=== PATIENT | male | born 1960 | race Caucasian/White ===

== ENCOUNTER 2016-12-19 08:03 | Emergency (ER) | payer OTHER ==
[2016-12-19] MEDS ORDERED: HYDROmorphone 2 MG/ML SDV IM ONE (08:27)
[2016-12-19] MEDS ORDERED: Ondansetron 4 MG Tab.DIS PO SCH (08:30)
[2016-12-19 11:21] VITALS: BP 140/88
--- NOTE | 2016-12-20 11:17 | US ---
INDICATION: Post-op third day swelling, pain. Question DVT. DUPLEX ULTRASOUND, LEFT LOWER EXTREMITY VEINS: Utilizing 2-D real time, duplex Doppler spectral analysis, and color flow imaging, examination of the left lower extremity veins was obtained and revealed the venous structures to be compressible. Valvular competence was not evaluated. At the level of the popliteal fossa, there was a 6 x 4-cm hypoechoic heterogeneous area with a similar finding extending around the patella with no interior blood flow seen. This appearance may be due to hematoma formation. This should be correlated clinically. No other abnormalities were identified. IMPRESSION: 1. No evidence of deep venous thrombosis. 2. Valves were not evaluated. 3. Hematoma suggested popliteal fossa and at the patella. MTDD
--- NOTE | 2016-12-20 15:53 | ER ---
DATE SEEN: 12/19/2016 TIME SEEN: The patient was seen at 0808 hours this morning. HISTORY OF PRESENT ILLNESS: The patient had surgery on 12/16/2016, left meniscectomy, he thinks is medial. Since the incision is midline infrapatellar, so it is possible both menisci were operated on. The patient weighs 215 pounds. He is prediabetic. He has had previous aortic valve replacement on 09/28/2010 and he is on Coumadin, he had stopped on 12/10/2016 and this was replaced by enoxaparin shots and these shots were started preoperatively on 12/13/2016. ALLERGIES: Codeine, latex natural rubber, and penicillin. MEDICATIONS: 1. Atorvastatin 80 mg at bedtime. 2. Zolpidem/Ambien 5 mg at bedtime. 3. Warfarin 5 mg daily restarted on 12/15/2016. He stopped it three days before surgery. 4. We started his enoxaparin 12/13/2016, b.i.d. until the day before surgery which he had one shot. The patient had marked pain and difficulty sleeping last night because of the pain in the lower extremity and moderate swelling. He is concerned about potential DVT. No history of previous DVT because his aortic valve surgery that was replaced, slight bleeding within the joint. PHYSICAL EXAMINATION: VITAL SIGNS: See vital signs. HEENT: Negative. CARDIORESPIRATORY: Negative. Aortic valve click heard. ABDOMEN: Negative. Nontender to palpation. EXTREMITIES: Left lower extremity, no evidence for erythema. Midline incision infrapatellar noted. Mild swelling. Mild tenderness, popliteal surface. Moderate lower extremity gastroc discomfort. Dorsalis pedis pulse, posterior tibialis pulse intact. No acrocyanosis and no compromised circulation or capillary refill of the toes. DIAGNOSTIC DATA: Ultrasound of the left lower extremity did not demonstrate a DVT. He has a fairly large hematoma in his operative site. ASSESSMENT: 1. Popliteal hematoma probably compressing vessels causing diminished return venous flow from his lower leg resulting in increased swelling and popliteal fossa pain. 2. Postoperative swelling. 3. No sign of infection. 4. No evidence for DVT or PE. 5. Mildly overweight. 6. Treated for aortic valve replacement therapy. Anticoagulation with Coumadin stopped on 12/13/2016 and started on the enoxaparin, three days before surgery. 7. Warfarin restarted on his first postop day. PLAN: The patient will elevate his leg. He has not been totally compliant since his surgery. He needs to elevate his leg above his heart. Cold packs as needed to diminished pain discomfort. He has a prescription for hydromorphone, Dilaudid 2 mg 1 to 2 tablets every 4 to 6 hours p.r.n. pain was given to the patient. Follow up his doctor in next 3 to 5 days earlier if worse, otherwise in a week. Elevate his leg to diminish the swelling. At present, I do not feel he needs to have arthrocentesis to remove any hematomas that occurred with the knee surgery. If he needs arthrocentesis, his orthopedist or interventional radiology would need to perform. /[id number] MART/JASON QUESADA
--- NOTE | 2017-01-20 05:25 | ER ---
DATE SEEN: 12/19/2016 ADDENDUM: CHIEF COMPLAINT: When he was seen on the morning of 12/19/2016, left leg pain, increasing left leg discomfort, status postop 12/16/2016 (second postop day). /[id number] MART/JASON
== END 2016-12-19 09:40 | disposition home or self-care (01) ==
LOC: FB.ED 08:03
DX: M96.840 Postprocedural hematoma of a musculoskeletal structure following a musculoskeletal system procedure (principal); E66.3 Overweight; Z79.01 Long term (current) use of anticoagulants; Z88.5 Allergy status to narcotic agent; Z91.040 Latex allergy status; Z88.0 Allergy status to penicillin; M25.462 Effusion, left knee
CPT/HCPCS: 93971; 96372; 99283; A9270; J1170

== ENCOUNTER 2016-12-23 12:09 | Observation (INO) | payer OTHER ==
[2016-12-23] MEDS ORDERED: Morphine 2 MG/ML Syringe IM STA (12:42)
--- NOTE | 2016-12-23 12:52 | EDM.PDOC ---
ED HPI Trauma - General Chief Complaint: Lower Extremity Injury/Pain Stated Complaint: F/U KNEE PAIN Time Seen by Provider: 12/23/16 12:10 Source: Reports: Patient History Limitations: Reports: Physical impairment - History of Present Illness INITIAL COMMENTS - FREE TEXT/NARRATIVE: 56 years old w m s/o meniscus repair last , on Coumadin due to a mechanical heart valve , again seen at [facility] again last tuesday for hemarthrosis, which was drained. Pt was admitted Tuesday and discharged yesterday 12/23/2016 with Oxycodon for pain. Pt came to the again c/o severe pain 06/07 with Oxycodon Q4 hours and ICE. No trauma, US was neg for dvt, INR was 1.8 yesterday. Symptom Onset Date: 12/23/16 Symptom Onset Time: 04:00 Occurred When: yesterday Occurred Where: home Method of Injury: unknown Severity: severe (06/07) Pain/Injury Location: Reports: lower extremity, left Consciousness: Reports: no loss of consciousness Associated Symptoms: Reports: denies other symptoms Allergies/ADRs: Allergies codeine Allergy (Verified 12/23/16 12:39) UNKNOWN Latex, Natural Rubber Allergy (Verified 12/23/16 12:39) Rash Penicillins Allergy (Verified 12/23/16 12:39) UNKNOWN Home Medications: Ambulatory Orders Lisinopril 40 mg PO DAILY 11/23/13 [Confirmed 12/19/16] Sertraline HCl [Zoloft] 100 mg PO DAILY 11/23/13 [Confirmed 12/19/16] Warfarin [Coumadin] 5 mg PO SUTUWETHSA 11/23/13 [Confirmed 12/19/16] atorvaSTATin [Lipitor] 80 mg PO BEDTIME 11/23/13 [Confirmed 12/19/16] HYDROmorphone HCl [Dilaudid] 2 mg PO Q4HR PRN 12/19/16 [Confirmed 12/19/16] Warfarin [Coumadin] 7.5 mg PO MOFR 12/19/16 [Confirmed 12/19/16] Zolpidem Tartrate 10 mg PO BEDTIME 12/23/16 [Confirmed 12/23/16] hydrOXYzine Pamoate [Hydroxyzine Pamoate] 25 mg PO DAILY 12/23/16 [Confirmed ] Past Medical History HEENT History: Reports: Impaired vision, Other (see below) Other HEENT History: Wears eyeglasses. Cardiovascular History: Reports: Heart valve replacement, High cholesterol, Hypertension Musculoskeletal History: Reports: Fracture Other Musculoskeletal History: R clavicle, R ankle Psychiatric History: Reports: Depression Endocrine/Metabolic History: Reports: Diabetes, type II, Obesity/BMI 30+ Hematologic History: Reports: Other (see below) Other Hematologic History: on Coumadin therapy - Infectious Disease History Infectious Disease History: Reports: Chicken pox, Measles, Mumps - Past Surgical History Cardiovascular Surgical History: Reports: Valve replacement Musculoskeletal Surgical History: Reports: Arthroscopic knee, ORIF Other Musculoskeletal Surgeries/Procedures:: Left knee scope 12/16/16, R ankle pinned Social & Family History - Family History Family Medical History: Noncontributory - Tobacco Use Smoking Status *Q: Former Smoker Years of Tobacco use: 17 Packs/Tins Daily: 1 Used Tobacco, but Quit: Yes Month Tobacco Last Used: 1991 Second Hand Smoke Exposure: No - Caffeine Use Caffeine Use: Reports: None - Recreational Drug Use Recreational Drug Use: No Review of Systems - Review of Systems Review Of Systems: See Below Constitutional: Reports: no symptoms Eyes: Reports: no symptoms Ears: Reports: no symptoms Nose: Reports: no symptoms Mouth/Throat: Reports: no symptoms Respiratory: Reports: No Symptoms Cardiovascular: Reports: no symptoms GI/Abdominal: Reports: No symptoms Genitourinary: Reports: no symptoms Musculoskeletal: Reports: joint pain (left knee) Skin: Reports: no symptoms Neurological: Reports: No Symptoms Psychiatric: Reports: no symptoms Trauma Exam - Physical Exam Exam: See Below Exam Limited By: Physical impairment General Appearance: Reports: alert, WD/WN, moderate distress Head: Reports: atraumatic, normocephalic Eyes: bilateral eye: normal inspection Ears: Reports: normal external exam Nose: Reports: normal inspection, normal mucousa Throat/Mouth: Reports: Normal inspection, Normal lips, Normal oropharynx, Normal voice, No airway compromise Neck: Reports: non-tender, full range of motion, normal alignment, normal inspection Respiratory Exam: Reports: no respiratory distress, lungs clear, normal breath sounds Cardiovascular: Reports: normal peripheral pulses, regular rate, rhythm, other ( systolic click) GI/Abdominal: Reports: normal bowel sounds, soft, non tender, no organomegaly (Male) Exam: Deferred Rectal (Males) Exam: Deferred Back: Reports: full range of motion, normal inspection, non-tender Extremities: Reports: pain with movement (left knee, generalized) Neurologic: Reports: securities attorney II-XII nml as tested, no motor/sensory deficits, alert , oriented x 3 Skin: Reports: Normal color, Warm/dry - Alice Coma Score Best Eye Response (Alice): (4) open spontaneously Best Verbal Response (Alice): (5) oriented Best Motor Response (Alice): (6) obeys commands Alice Total: 15 Course - Vital Signs Text/Narrative:: 56 years old w m s/o meniscus repair last , on Coumadin due to a mechanical heart valve , again seen at [facility] again last tuesday for hemarthrosis, which was drained. Pt was admitted Tuesday and discharged yesterday 12/23/2016 with Oxycodon for pain. Pt came to the again c/o severe pain 10/10 with Oxycodon Q4 hours and ICE. No trauma, US was neg for dvt, INR was 1.8 yesterday. PE: WNWD w m c/o severe left knee pain 10/10. left knee tender, no acute swelling, temp was equal touch on both knees, limited ROM (not worse since d/c from [place]) [address] Bell, [facility]: Is not worried about a new bleed, recommended admit for pain control if indicated Impression: Left knee pain S/P meniscus repair, s/p hemarthrosis, H/O Aortic valve replacement on Coumadin. Tx: Morphine sulfate, ICE Reexam: no improvement, SBP was 114 Plan: Admit for pain control. Last Recorded V/S: Last Vital Signs Temp 37.0 C 12/23/16 12:10 Pulse 89 12/23/16 12:10 Resp 18 12/23/16 12:10 BP 118/75 12/23/16 12:10 Pulse Ox 100 12/23/16 12:10 - Orders/Labs/Meds Orders: Active Orders 24 hr Category Date Time Status Patient Status [ADT] Routine ADT 12/23/16 13:11 Ordered Anticoag Warfarin Education *Q [RC] DAILY Care 12/23/16 13:10 Ordered Cooling Warming Measures [RC] ASDIRECTED Care 12/23/16 12:43 Ordered Oxygen Therapy [RC] PRN Care 12/23/16 13:11 Ordered VTE/DVT Education [RC] Per Unit Routine Care 12/23/16 13:11 Ordered Vital Signs [RC] Q4H Care 12/23/16 13:11 Ordered Regular Diet [DIET] Diet 12/23/16 Breakfast Ordered Acetaminophen [Tylenol] Med 12/23/16 13:10 Ordered 650 mg PO Q4H PRN Docusate Sodium [Colace] Med 12/23/16 13:10 Ordered 100 mg PO BID PRN Morphine Med 12/23/16 13:10 Ordered 2 mg IVPUSH Q2H PRN Ondansetron [Zofran] Med 12/23/16 13:10 Ordered 4 mg IV Q4H PRN Ice Pack [Ice Therapy] [OM.PC] Routine Oth 12/23/16 12:43 Ordered Resuscitation Status Routine Resus Stat 12/23/16 13:10 Ordered Medication Orders Acetaminophen (Tylenol) 650 mg PO Q4H PRN PRN Reason: Pain (Mild 1-3)/fever Docusate Sodium (Colace) 100 mg PO BID PRN PRN Reason: Constipation Sodium Chloride (Normal Saline) 1,000 mls @ 125 mls/hr IV ASDIRECTED RANDAL Morphine Sulfate (Morphine) 2 mg IVPUSH Q2H PRN PRN Reason: Pain (severe 7-10) Ondansetron HCl (Zofran) 4 mg IV Q4H PRN PRN Reason: Nausea/Vomiting Meds: Medications Generic Name Dose Route Start Last Admin Trade Name Freq PRN Reason Stop Dose Admin Acetaminophen 650 mg 12/23/16 13:10 Tylenol PO Q4H PRN Pain (Mild 1-3)/fever Docusate Sodium 100 mg 12/23/16 13:10 Colace PO BID PRN Constipation Sodium Chloride 1,000 mls @ 125 mls/hr 12/23/16 13:30 Normal Saline IV ASDIRECTED RANDAL Morphine Sulfate 2 mg 12/23/16 13:10 Morphine IVPUSH Q2H PRN Pain (severe 7-10) Ondansetron HCl 4 mg 12/23/16 13:10 Zofran IV Q4H PRN Nausea/Vomiting Discontinued Medications Generic Name Dose Route Start Last Admin Trade Name Freq PRN Reason Stop Dose Admin Morphine Sulfate 1 mg 12/23/16 12:42 12/23/16 12:52 Morphine IM 12/23/16 12:43 1 mg ONETIME STA Administration Departure - Departure Time of Disposition: 13:33 Disposition: Refer to Observation Condition: fair Clinical Impression: Knee pain, left Qualifiers: Chronicity: unspecified Qualified Code(s): M25.562 - Pain in left knee - My Orders Last 24 Hours: My Active Orders 12/23/16 12:43 Cooling Warming Measures [RC] ASDIRECTED Ice Pack [Ice Therapy] [OM.PC] Routine 12/23/16 13:10 Anticoag Warfarin Education *Q [RC] DAILY Acetaminophen [Tylenol] 650 mg PO Q4H PRN Docusate Sodium [Colace] 100 mg PO BID PRN Morphine 2 mg IVPUSH Q2H PRN Ondansetron [Zofran] 4 mg IV Q4H PRN Resuscitation Status Routine 12/23/16 13:11 Patient Status [ADT] Routine Oxygen Therapy [RC] PRN VTE/DVT Education [RC] Per Unit Routine Vital Signs [RC] Q4H 12/23/16 Breakfast Regular Diet [DIET] - Assessment/Plan Last 24 Hours: My Active Orders 12/23/16 12:43 Cooling Warming Measures [RC] ASDIRECTED Ice Pack [Ice Therapy] [OM.PC] Routine 12/23/16 13:10 Anticoag Warfarin Education *Q [RC] DAILY Acetaminophen [Tylenol] 650 mg PO Q4H PRN Docusate Sodium [Colace] 100 mg PO BID PRN Morphine 2 mg IVPUSH Q2H PRN Ondansetron [Zofran] 4 mg IV Q4H PRN Resuscitation Status Routine 12/23/16 13:11 Patient Status [ADT] Routine Oxygen Therapy [RC] PRN VTE/DVT Education [RC] Per Unit Routine Vital Signs [RC] Q4H 12/23/16 Breakfast Regular Diet [DIET]
[2016-12-23] MEDS ORDERED: Docusate Sodium 100 MG Cap PO PRN (13:10)
[2016-12-23] MEDS ORDERED: Ondansetron 4 MG/2 ML SDV IV PRN (13:10)
[2016-12-23] MEDS ORDERED: Acetaminophen 325 MG Tab PO PRN (13:10)
[2016-12-23] MEDS: Sodium Chloride 0.9% 1,000 ML IV SCH ×2 (14:20→22:00)
[2016-12-23] MEDS: Morphine 2 MG/ML Syringe IVPUSH PRN ×3 (14:25→21:23)
[2016-12-23] MEDS ORDERED: Warfarin 5 MG Tab PO SCH (18:00)
--- NOTE | 2016-12-23 18:04 | PCM.HP ---
H&P History of Present Illness - General Date of Service: 12/23/16 Source of Information: Patient History Limitations: Reports: No limitations - History of Present Illness Initial Comments - Free Text/Narative: This is a 56-year-old male patient had a arthroscopy one week ago and [place]. He has a history of being on Coumadin for a mechanical valve. He was taken off his Coumadin and bridged with Lovenox. He got blood in the joint. He was up and [place] last Tuesday for 2 days and they drained his knee and placed some cortisone in the knee. He states it is completely blood that came out. He was sent home on Dilaudid. States the pain is got to be a 10 out of 10 and the daughter is not helping. He was seen by the ER doc admitted. Still has left knee pain right now as a 9/10 on morphine. So the pain so bad causing crying. He has no preinjury since his surgery. He states he still taken Lovenox and Coumadin. Last INR is 1.8. Dr. Allen was his orthopedic surgeon. left knee Pain Score (Numeric/FACES): 8 - Related Data Allergies/Adverse Reactions: Allergies Allergy/AdvReac Type Severity Reaction Status Date / Time codeine Allergy UNKNOWN Verified 12/23/16 14:33 Latex, Natural Rubber Allergy Rash Verified 12/23/16 14:33 Penicillins Allergy UNKNOWN Verified 12/23/16 14:33 Home Medications: Home Meds Lisinopril 40 mg PO DAILY 11/23/13 [History] Sertraline HCl [Zoloft] 100 mg PO DAILY 11/23/13 [History] Warfarin [Coumadin] 5 mg PO SUTUWETHSA 11/23/13 [History] atorvaSTATin [Lipitor] 80 mg PO BEDTIME 11/23/13 [History] HYDROmorphone HCl [Dilaudid] 2 mg PO Q4HR PRN 12/19/16 [History] Warfarin [Coumadin] 7.5 mg PO MOFR 12/19/16 [History] Enoxaparin [Lovenox] 100 mg SQ BID 12/23/16 [History] Zolpidem Tartrate 10 mg PO BEDTIME 12/23/16 [History] hydrOXYzine Pamoate [Hydroxyzine Pamoate] 25 mg PO DAILY 12/23/16 [History] metFORMIN [Glucophage] 500 mg PO BIDMEALS 12/23/16 [History] Past Medical History HEENT History: Reports: Impaired vision, Other (see below) Other HEENT History: Wears eyeglasses. Cardiovascular History: Reports: Heart murmur, Heart valve replacement, High cholesterol, Hypertension Musculoskeletal History: Reports: Fracture Other Musculoskeletal History: R clavicle, R ankle Psychiatric History: Reports: Depression Endocrine/Metabolic History: Reports: Diabetes, type II, Obesity/BMI 30+ Hematologic History: Reports: Other (see below) Other Hematologic History: on Coumadin therapy - Infectious Disease History Infectious Disease History: Reports: Chicken pox, Measles, Mumps - Past Surgical History HEENT Surgical History: Reports: None Cardiovascular Surgical History: Reports: Valve replacement Other Cardiovascular Surgeries/Procedures: Aortic valve replacement GI Surgical History: Reports: Colonoscopy Musculoskeletal Surgical History: Reports: Arthroscopic knee, ORIF Other Musculoskeletal Surgeries/Procedures:: Left knee scope 12/16/16, R ankle pinned Social & Family History - Family History Family Medical History: Noncontributory - Tobacco Use Smoking Status *Q: Former Smoker Years of Tobacco use: 15 Packs/Tins Daily: 1 Used Tobacco, but Quit: Yes Month Tobacco Last Used: 27 years ago Tobacco Use Comment: Pt reports quitting smoking 27 years ago Second Hand Smoke Exposure: No - Caffeine Use Caffeine Use: Reports: None - Recreational Drug Use Recreational Drug Use: No H&P Review of Systems - Review of Systems: Review Of Systems: See Below General: Reports: no symptoms HEENT: Reports: no symptoms Pulmonary: Reports: No Symptoms Cardiovascular: Reports: no symptoms Gastrointestinal: Reports: No symptoms Genitourinary: Reports: no symptoms Musculoskeletal: Reports: joint pain Skin: Reports: no symptoms Psychiatric: Reports: no symptoms Neurological: Reports: No Symptoms Hematologic/Lymphatic: Reports: no symptoms Immunologic: Reports: no symptoms Exam - Exam Exam: See Below - Vital Signs Vital Signs: Last Vital Signs Temp 98 F 12/23/16 17:42 Pulse 58 L 12/23/16 17:42 Resp 16 12/23/16 17:42 BP 124/64 12/23/16 17:42 Pulse Ox 94 L 12/23/16 17:42 Weight: 213 lb 6.4 oz - Exam General: alert, oriented, cooperative HEENT: Hearing intact, Mucosa moist & pink, Posterior pharynx clear, TMs clear Neck: supple, trachea midline Lungs: Clear to auscultation, Normal respiratory effort Cardiovascular: regular rate, regular rhythm, normal S1, normal S2 Abdomen: normal bowel sounds. No: organomegaly, guarding, rigidity, rebound, tenderness Back Exam: normal inspection Extremities: other (Left knee has mild swelling. Sutures are intact with no erythema. Mild ecchymosis. Decreased range of motion.) Skin: warm, dry, intact Neuro Extensive - Mental Status: alert, oriented x3, normal mood/affect, normal cognition, memory intact Psychiatric: alert, normal affect, normal mood *Q Meaningful Use (ADM) - VTE *Q VTE Criteria *Q: - Stroke *Q Stroke Criteria *Q: - AMI *Q AMI Criteria *Q: - Problem List (1) Status post arthroscopy of left knee SNOMED Code(s): 437878948, 478177174 ICD Code: Z98.890 - OTHER SPECIFIED POSTPROCEDURAL STATES Status: Acute Current Visit: Yes (2) Knee pain, left SNOMED Code(s): 52192743 ICD Code: M25.562 - PAIN IN LEFT KNEE Status: Acute Current Visit: Yes Qualifiers: Chronicity: unspecified Qualified Code(s): M25.562 - Pain in left knee Problem List Initiated/Reviewed/Updated: Yes Orders Last 24hrs: Active Orders 24 hr Category Date Time Status INR,PT,PROTHROMBIN TIME [COAG] DAILY Lab 12/23/16 18:00 Ordered INR,PT,PROTHROMBIN TIME [COAG] DAILY Lab 12/24/16 18:00 Ordered INR,PT,PROTHROMBIN TIME [COAG] DAILY Lab 12/25/16 18:00 Ordered INR,PT,PROTHROMBIN TIME [COAG] DAILY Lab 12/26/16 18:00 Ordered INR,PT,PROTHROMBIN TIME [COAG] DAILY Lab 12/27/16 18:00 Ordered Acetaminophen/oxyCODONE [Percocet 325-5 MG] Med 12/23/16 17:59 Ordered 1 tab PO Q4H PRN Enoxaparin [Lovenox] Med 12/23/16 21:00 Ordered 100 mg SUBCUT BID Lisinopril [Prinivil] Med 12/24/16 09:00 Ordered 40 mg PO DAILY Sertraline [Zoloft] Med 12/24/16 09:00 Ordered 100 mg PO DAILY Warfarin [Coumadin] Med 12/23/16 18:00 Ordered 5 mg PO SUTUWETHSA Warfarin [Coumadin] Med 12/24/16 17:57 Ordered 7.5 mg PO MOFR Zolpidem [Ambien] Med 12/23/16 21:00 Ordered 10 mg PO BEDTIME atorvaSTATin [Lipitor] Med 12/23/16 21:00 Ordered 80 mg PO BEDTIME hydrOXYzine Pamoate [Hydroxyzine Pamoate] Med 12/24/16 09:00 Ordered 25 mg PO DAILY metFORMIN [Glucophage] Med 12/23/16 18:00 Ordered 500 mg PO BIDMEALS Medication Orders Acetaminophen (Tylenol) 650 mg PO Q4H PRN PRN Reason: Pain (Mild 1-3)/fever Docusate Sodium (Colace) 100 mg PO BID PRN PRN Reason: Constipation Enoxaparin Sodium (Lovenox) 100 mg SUBCUT BID [facility] Sodium Chloride (Normal Saline) 1,000 mls @ 125 mls/hr IV ASDIRECTED [facility] Last Admin: 12/23/16 14:20 Dose: 125 mls/hr Lisinopril (Prinivil) 40 mg PO DAILY [facility] Metformin HCl (Glucophage) 500 mg PO BIDMEALS [facility] Morphine Sulfate (Morphine) 2 mg IVPUSH Q2H PRN PRN Reason: Pain (severe 7-10) Last Admin: 12/23/16 17:07 Dose: 2 mg Admin: 12/23/16 14:25 Dose: 2 mg Non-Formulary Medication (Warfarin [Coumadin]) 7.5 mg PO MOFR [facility] Non-Formulary Medication (Atorvastatin [Lipitor]) 80 mg PO BEDTIME [facility] Non-Formulary Medication (Hydroxyzine Pamoate [Hydroxyzine Pamoate]) 25 mg PO DAILY [facility] Ondansetron HCl (Zofran) 4 mg IV Q4H PRN PRN Reason: Nausea/Vomiting Oxycodone/Acetaminophen (Percocet 325-5 Mg) 1 tab PO Q4H PRN PRN Reason: Pain Sertraline HCl (Zoloft) 100 mg PO DAILY [facility] Warfarin Sodium (Coumadin) 5 mg PO SUTUWETHSA [facility] Zolpidem Tartrate (Ambien) 10 mg PO BEDTIME [facility] Assessment/Plan Comment:: 1. The patient for pain control.. Start Percocet by mouth and stop Dilaudid. 2. Continue his home medications. 3. Slowly convert IV to by mouth for pain control. 4. Continue Lovenox as prescribed previously until his INR is over 2.0. 5. INR ordered for the a.m.
[2016-12-23] MEDS: Acetaminophen/oxyCODONE 325-5 MG Tab PO PRN (18:38)
[2016-12-23] MEDS: metFORMIN 500 MG Tab PO SCH (20:37)
[2016-12-23] MEDS ORDERED: Enoxaparin 100 MG/1 ML Syringe SUBCUT SCH (21:00)
[2016-12-23] MEDS ORDERED: atorvaSTATin 40 MG Tab PO SCH (21:00)
[2016-12-23] MEDS ORDERED: Zolpidem 10 MG Tab PO SCH (21:00)
[2016-12-24] MEDS: Acetaminophen/oxyCODONE 325-5 MG Tab PO PRN ×2 (00:30→06:43)
[2016-12-24] MEDS: Morphine 2 MG/ML Syringe IVPUSH PRN ×3 (02:40→08:21)
[2016-12-24] MEDS: Sodium Chloride 0.9% 1,000 ML IV SCH (05:58)
[2016-12-24] MEDS ORDERED: Sertraline 100 MG Tab PO SCH (09:00)
[2016-12-24] MEDS: metFORMIN 500 MG Tab PO SCH (09:10)
[2016-12-24] MEDS ORDERED: hydrOXYzine HCl 25 MG Tab PO SCH (10:20)
--- NOTE | 2016-12-24 11:24 | PN ---
DATE SEEN: 12/24/2016 SUBJECTIVE: This is a 56-year-old gentleman is seen today for followup of his left knee pain. He is status post arthroscopic examination that resulted in hemarthrosis. He has had the knee drained at least once and injected with hydrocortisone. He continued to have a rather significant pain and was admitted yesterday for pain control. He says he did sleep a little bit last night, but does not feel like the morphine is working at all. He said the hydromorphone seemed to work considerably better. He denies any fever. He has had no chills. No other joint pain, swelling, or tenderness. Denies any other complaints. OBJECTIVE: GENERAL: He appears to be in no acute distress. I did awaken him. He is afebrile. VITAL SIGNS: Blood pressure 100/63, pulse is 71 and regular, respirations are 18 and nonlabored, O2 saturation on room air is 96%. HEENT: Otherwise unremarkable. CHEST: Clear. CARDIOVASCULAR: He has a normal S1 and S2 with what sounds like an S2 click. Revealed a regular rhythm without murmur, rub, or gallop. ABDOMEN: Unremarkable except for obesity. EXTREMITIES: The left knee has a moderate effusion without erythema, it is somewhat warm to touch. Range of motion is limited because of discomfort. Neuro and circulatory function were intact distally. LABORATORY DATA: INR today was 2.48. IMPRESSION: 1. Recent left knee arthroscopic exam resulting in hemarthrosis and increased left knee pain. 2. Status post aortic valve replacement, on chronic anticoagulation therapy, aggravating the above. PLAN: As noted above, he says the morphine is not helping as much as the hydromorphone. I will switch him over to Dilaudid 4 mg p.o. q.4 hours and get PT/OT involved to see if we can get him up and about. If in fact we can get him after decent pain control, he can be discharged and followed as an outpatient. Saline lock his IV and regular diet will be ordered. We will follow from there. /[id number] /[id number]
[2016-12-24 15:02] VITALS: BP 119/59
[2016-12-24] MEDS ORDERED: Warfarin 2.5 MG Tab PO SCH (17:57)
--- NOTE | 2016-12-24 18:21 | PN ---
DATE SEEN: 12/24/2016 SUBJECTIVE: Carlos Alberto is seen in this afternoon for recheck. Actually, he says since increase in the Dilaudid to 4 mg every 4 hours, his pain has come under better control. He has been using the ice and keeping the knee elevated and he says he is more comfortable. He thinks he can probably go home as long as he can keep the dose the same for next few days. Had PT check him and actually they said he is doing well. Had no new recommendations. He had already has crutches at home and he has a followup appointment with the Orthopedic PA on Tuesday. OBJECTIVE: VITAL SIGNS: Unchanged, he remains afebrile. Vitals as documented. HEENT: Otherwise unremarkable. CHEST: Clear. CARDIOVASCULAR: Unremarkable, except for the prominent S2 click with a regular rhythm. ABDOMEN: Negative. EXTREMITIES: The knee shows mild diffusion. It is slightly warm to touch without erythema. Incisional scars are healing appropriately. No calf pain, swelling, or tenderness was noted. IMPRESSION: 1. Status post left knee arthroscopy complicated by hemarthrosis and resultant increased pain. 2. Previous history of aortic valve replacement. 3. History of type 2 diabetes mellitus. 4. History of hypertension. PLAN: At this point, we will make no changes. Discharge him home on the hydromorphone 4 mg every 4 hours p.r.n., and he will continue his Zoloft, metformin, atorvastatin, and warfarin as documented. He was informed of his INR results which were excellent at 2.48 and we would tell him to monitor his blood sugars at home. Follow up with the Orthopedic PA on Tuesday and call if there are any further problems. /[id number] /ROBERTL
== END 2016-12-24 16:00 | disposition home or self-care (01) ==
LOC: FB.ED 12:09 → FB.MS 13:16
PROVIDERS: ADMIT Family Medicine; ATTEND Family Medicine
DX: M25.562 Pain in left knee (principal); Z95.4 Presence of other heart-valve replacement; Z79.01 Long term (current) use of anticoagulants; Z96.652 Presence of left artificial knee joint; I10 Essential (primary) hypertension; E11.9 Type 2 diabetes mellitus without complications
CPT/HCPCS: 36415; 85610; 96372; 99284; A9270; J2270; J7040; 96361; 96374; 96376; G0378